=== PATIENT | male | born 1955 ===

== ENCOUNTER 2016-12-20 07:51 | Day surgery (SDC) | payer BC ==
[2014-10-26 12:05] VITALS: BMI 30.9
--- NOTE | 2016-12-20 08:50 | CP.SDSHP ---
Same Day Surgery H & P - History Proposed Procedure: mri of knees spine under anesthesia. Pre-Op Diagnosis: arthritis knnes . spine. - Previous Medical/Surgical History Cardiac: Hypertension, ASHD/CAD Pulmonary: Asthma Endocrine/Metabolic: Diabetes, Obesity, Renal Disease Neuro: Backaches Misc: Bleeding Disorder Pain: 0. No Pain Previous Surgical History: laminectomy. - Allergies Allergies: Allergies Penicillins Allergy (Verified 12/19/16 08:11) RASH - Physical Exam General Appearance: WNL. Vital Signs: Vital Signs 12/20/16 08:19 Temperature 98.3 F Pulse Rate 70 Respiratory 20 Rate Blood Pressure 146/86 O2 Sat by Pulse 99 Oximetry Mental Status: Alert & Oriented x3 Neuro: WNL Heart: WNL Lungs: WNL GI: WNL - Impression Impression: HYPERLIPIDEMIArenal cyst, fatty liver.on cumadine.frequent urine infections. - Date & Time Date: 12/20/16 Time: 08:49 Short Stay Discharge - Short Stay Discharge Admitting Diagnosis/Reason for Visit: M25.561, M25.562 Disposition: HOME/ ROUTINE Referrals: Christianne Palencia MD [Primary Care Provider] -
[2016-12-20] MEDS ORDERED: Propofol 10 mg/ml Inj (20 ML) ONE (09:06)
[2016-12-20] MEDS ORDERED: Midazolam 2 MG/2 ML VIAL ONE (09:06)
[2016-12-20] MEDS ORDERED: Ketamine 10 mg/ml Inj (20 ml) ONE (09:11)
[2016-12-20] MEDS ORDERED: Propofol 10 mg/ml 2,000 MG/200 ML VIAL ONE (09:39)
[2016-12-20 13:05] VITALS: RESP 20; TEMP 97.9
--- NOTE | 2016-12-20 13:40 | MRI ---
PROCEDURE: MR LUMBAR SPINE WITHOUT CONTRAST HISTORY: HNP COMPARISON: None available. TECHNIQUE: Multiecho multiplanar sequences were performed through the lumbar spine without the use of intravenous contrast. FINDINGS: Normal lumbar lordosis. Vertebral body heights are preserved. Marrow signal unremarkable. Conus medullaris unremarkable at the level of Paraspinal soft tissues are unremarkable. T12-L1: No disc herniation, spinal canal stenosis or neural foraminal narrowing. L1-2: No disc herniation, spinal canal stenosis or neural foraminal narrowing. L2-3: No disc herniation, spinal canal stenosis or neural foraminal narrowing. L3-4: Previous laminectomy. Moderate facet arthropathy L4-5: Previous laminectomy. Moderate facet arthropathy L5-S1: Moderate facet arthropathy with bilateral foraminal stenosis and mild central stenosis OTHER FINDINGS: None. IMPRESSION: Laminectomy and facet arthropathy at L3-4 and L4-5. Facet arthropathy with bilateral foraminal stenosis and mild central stenosis at L5-S1
--- NOTE | 2016-12-20 13:43 | MRI ---
PROCEDURE: MR CERVICAL SPINE WITHOUT CONTRAST HISTORY: HNP COMPARISON: None available. TECHNIQUE: Multiecho multiplanar sequences were performed through the cervical spine without the use of intravenous contrast. FINDINGS: Normal lordotic curvature. Craniocervical junction unremarkable. Vertebral body heights preserved. No marrow signal abnormality. Normal cervical cord. No paraspinal abnormality. C2-C3: No disc herniation, spinal canal stenosis or neural foraminal narrowing. C3-C4: No disc herniation, spinal canal stenosis or neural foraminal narrowing. C4-C5: No disc herniation, spinal canal stenosis or neural foraminal narrowing. C5-C6: No disc herniation, spinal canal stenosis or neural foraminal narrowing. C6-C7: No disc herniation, spinal canal stenosis or neural foraminal narrowing. C7-T1: No disc herniation, spinal canal stenosis or neural foraminal narrowing. OTHER FINDINGS: There is mild disc degeneration with desiccation of the disc material but no significant loss of disc height or disc bulge IMPRESSION: No evidence of disc herniation or spinal stenosis
--- NOTE | 2016-12-20 13:53 | MRI ---
MRI bilateral knees History: Knee pain. Comparison: None available. Technique: Multi-echo multiplanar sequences were performed through the bilateral knees without the use of intravenous contrast. Findings: Right knee: Marked thinning, fraying, and increased signal seen within the visualized anterior cruciate ligament suggestive for prominent large partial/near complete interstitial tearing. A few tendon strand fibers may remain partially intact. Thickening with increased signal seen within the proximal attachment of the posterior cruciate ligament suggestive for a moderate to high-grade sprain. Blunting with focal deficiency at the posterior horn and root of the medial meniscus measuring approximately 7 millimeter suggestive for postsurgical change and/or residual/recurrent tear. Additional prominent globular increased signal throughout the remainder of the posterior horn extending into the body suggestive for intrasubstance partial tearing and or degeneration. Globular increased signal seen within the anterior root and horn of the lateral meniscus extending to the articular surface suggestive for a small tear. Moderate to high grade sprain of the medial collateral ligament. Lateral collateral ligament complex structures appear preserved. Quadriceps tendon is preserved. Patellar tendon is preserved. Reticulation and edema within the prepatellar soft tissues. Prominent cartilage thinning and loss overlying the lateral patellar facet and patellar apex. Prominent cartilage thinning and loss overlying the anterior to midportion of the medial compartment of the femorotibial joint space. Mild cartilage thinning and loss overlying the anterior aspect of the femorotibial joint space. Moderate suprapatellar joint effusion. Small posterior Carranza's cyst. Left knee: Marked thinning and attenuation with increased signal seen within the visualized anterior cruciate ligament suggestive for a moderate to high-grade sprain with partial interstitial tearing. A few of the tendon strand fibers remain partially intact. Moderate to high grade sprain of the proximal and midportion of the posterior cruciate ligament. Relative focal deficiency noted at the junction of the posterior horn and root of the medial meniscus measuring approximately 4.6 millimeters suggestive for a focal full thickness tear. Additional prominent globular increased signal seen within the posterior horn and body of the medial meniscus suggestive for prominent intrasubstance partial tearing. Prominent globular increased signal within the anterior root and horn of the lateral meniscus suggestive for intrasubstance partial tearing. Moderate to high grade sprain of the medial collateral ligament. Lateral collateral ligament complex structures appear preserved. Quadriceps tendon is preserved. Patellar tendon is preserved. Prominent cartilage thinning and loss overlying the lateral patellar facet and patellar apex. Prominent cartilage thinning and loss involving the medial compartment of the femorotibial joint spaces well as the anterior aspect of lateral femoral condyle. Moderate to large suprapatellar joint effusion with associated synovial debris and hypertrophy. Suggestion of a 1.1 centimeter loose osteochondral body within the suprapatellar recess. Small posterior Carranza's cyst. Moderate grade strain of the lateral patellar retinaculum. Suggestion of a few small loose osteochondral bodies adjacent to the proximal fibula measuring 9 millimeters. Tricompartmental osteophytosis. Impression: Right knee: 1. Marked thinning, fraying, and increased signal seen within the visualized anterior cruciate ligament suggestive for prominent large partial/near complete interstitial tearing. A few tendon strand fibers may remain partially intact. 2. Thickening with increased signal seen within the proximal attachment of the posterior cruciate ligament suggestive for a moderate to high-grade sprain. 3. Blunting with focal deficiency at the posterior horn and root of the medial meniscus measuring approximately 7 millimeter suggestive for postsurgical change and/or residual/recurrent tear. Additional prominent globular increased signal throughout the remainder of the posterior horn extending into the body suggestive for intrasubstance partial tearing and or degeneration. 4. Globular increased signal seen within the anterior root and horn of the lateral meniscus extending to the articular surface suggestive for a small tear. 5. Moderate to high grade sprain of the medial collateral ligament. 6. Reticulation and edema within the prepatellar soft tissues. 7. Prominent cartilage thinning and loss overlying the lateral patellar facet and patellar apex. Prominent cartilage thinning and loss overlying the anterior to midportion of the medial compartment of the femorotibial joint space. Mild cartilage thinning and loss overlying the anterior aspect of the femorotibial joint space. 8. Moderate suprapatellar joint effusion. Small posterior Carranza's cyst. Left Knee: 1. Marked thinning and attenuation with increased signal seen within the visualized anterior cruciate ligament suggestive for a moderate to high-grade sprain with partial interstitial tearing. A few of the tendon strand fibers remain partially intact. 2. Moderate to high grade sprain of the proximal and midportion of the posterior cruciate ligament. 3. Relative focal deficiency noted at the junction of the posterior horn and root of the medial meniscus measuring approximately 4.6 millimeters suggestive for a focal full thickness tear. Additional prominent globular increased signal seen within the posterior horn and body of the medial meniscus suggestive for prominent intrasubstance partial tearing. 4. Prominent globular increased signal within the anterior root and horn of the lateral meniscus suggestive for intrasubstance partial tearing. 5. Moderate to high grade sprain of the medial collateral ligament. 6. Prominent cartilage thinning and loss overlying the lateral patellar facet and patellar apex. Prominent cartilage thinning and loss involving the medial compartment of the femorotibial joint spaces well as the anterior aspect of lateral femoral condyle. 7. Moderate to large suprapatellar joint effusion with associated synovial debris and hypertrophy. Suggestion of a 1.1 centimeter loose osteochondral body within the suprapatellar recess. 8. Small posterior Carranza's cyst. 9. Moderate grade strain of the lateral patellar retinaculum. 10. Suggestion of a few small loose osteochondral bodies adjacent to the proximal fibula measuring 9 millimeters. 11. Tricompartmental osteophytosis.
[2016-12-20 16:23] VITALS: BP 116/68; PULSE 82; O2SAT 94
== END 2016-12-20 17:00 | disposition home or self-care (01) ==
LOC: MRISED 07:51
PROVIDERS: ATTEND Specialist
DX: M71.21 Synovial cyst of popliteal space [Baker], right knee (principal); M71.22 Synovial cyst of popliteal space [Baker], left knee; M17.0 Bilateral primary osteoarthritis of knee; M47.9 Spondylosis, unspecified; I10 Essential (primary) hypertension; I25.10 Atherosclerotic heart disease of native coronary artery without angina pectoris; J45.909 Unspecified asthma, uncomplicated; E11.9 Type 2 diabetes mellitus without complications; E66.9 Obesity, unspecified; N28.9 Disorder of kidney and ureter, unspecified; M54.9 Dorsalgia, unspecified; Z88.0 Allergy status to penicillin; E78.5 Hyperlipidemia, unspecified; N28.1 Cyst of kidney, acquired; K76.0 Fatty (change of) liver, not elsewhere classified; Z87.440 Personal history of urinary (tract) infections
CPT/HCPCS: 72141; 72148; 73721; J1170; J2250; J2405; J2704 ×2; J7040; J7120